=== PATIENT | female | born 1990 | race African-American/Black ===

== ENCOUNTER 2018-07-12 15:28 | Outpatient (CLI) | payer MEDICAID ==
[~2018-07-12] VITALS: Wt 86.8 kg
[2018-07-12 16:01] VITALS: BP 123/65; PULSE 102; TEMP 97.4
[2018-07-12] MEDS ORDERED: PRENATAL PO (16:21)
[2018-07-12] MEDS ORDERED: PROAIR HFA0.09 MG/AC IH (16:22)
[2018-07-12 17:05] VITALS: BP 109/56; PULSE 95
== END 2018-07-12 17:15 | disposition home or self-care (01) ==
LOC: LDRO 15:28 → LDR 15:35 → LDRO 17:15
DX: O47.02 False labor before 37 completed weeks of gestation, second trimester (principal); O26.893 Other specified pregnancy related conditions, third trimester; R11.2 Nausea with vomiting, unspecified; Z3A.27 27 weeks gestation of pregnancy
CPT/HCPCS: OP; J7120

== ENCOUNTER 2018-08-21 18:30 | Outpatient (CLI) | payer MEDICAID ==
[~2018-08-21] VITALS: Ht 167.6 cm; Wt 91.4 kg
[~2018-08-21 18:30] MED LIST: PRENATAL PO; PROAIR HFA0.09 MG/AC IH
--- NOTE | 2018-08-21 18:35 | NUR ---
at 33 weeks arrives to unit with complaint of contractions "every couple of minutes" pt hasn't been able to time them. Pt reports in the car on the way she had 3 contractions. Denies bleeding or LOF. Reports good FM. Pt oriented to room. EFM and toco explained and applied. Plan of care reviewed. supportive at bedside. Admission assessment started. Vital signs obtained. SVE - closed/thick/high
[2018-08-21 19:00] VITALS: BP 121/57; PULSE 115; TEMP 98.9
[2018-08-21 19:30] VITALS: BP 124/71; PULSE 103
--- NOTE | 2018-08-21 19:30 | NUR ---
1 contraction noted on toco. This RN in room from 1840 - 1910 and no contraction during that time.
[2018-08-21 19:45] VITALS: BP 116/58; PULSE 109
--- NOTE | 2018-08-21 20:00 | NUR ---
SVE unchanged over 1 hour. Pt discharged home at this time. Return precautions reviewed with patient. Discharge instructions reviewed, pt verbalized understanding of all. Pt seen ambulating off unit with spouse.
== END 2018-08-21 20:00 | disposition home or self-care (01) ==
LOC: LDRO 18:30
DX: O62.9 Abnormality of forces of labor, unspecified (principal); Z3A.33 33 weeks gestation of pregnancy

== ENCOUNTER 2018-09-20 18:01 | Outpatient (CLI) | payer MEDICAID ==
[~2018-09-20] VITALS: Ht 167.6 cm; Wt 93.2 kg
--- NOTE | 2018-09-20 18:00 | NUR ---
Pt arrived on unit ambulatory escorted by and with complaints of contractions "on and off all day", pt denies any leaking of fluid, vaginal bleeding at this time and reports normal movement. EFM and toco monitors placed. SVE by this RN /3. Vital signs WNL. Dr. Gutierrez on the unit. FHR tracing reviewed. Orders for labor assessment received.
[2018-09-20 19:30] VITALS: BP 109/64; PULSE 98; TEMP 98.3
--- NOTE | 2018-09-20 19:35 | NUR ---
SVE by this RN with no change . Spoke with Dr. Gutierrez for an update on pt's status. Orders for discharge home received. Information reviewed with pt and at the bedside.
== END 2018-09-20 19:50 | disposition home or self-care (01) ==
LOC: LDRO 18:01
DX: O62.9 Abnormality of forces of labor, unspecified (principal); Z3A.37 37 weeks gestation of pregnancy

== ENCOUNTER 2018-10-03 06:24 | Inpatient (IN) | payer MEDICAID ==
[~2018-10-03] VITALS: Ht 167.6 cm; Wt 93.2 kg
[2018-10-04] VITALS (40 sets, daily range): BP systolic 92–148; BP diastolic 45–90; PULSE 80–118; TEMP 98.1–98.9
--- NOTE | 2018-10-04 07:10 | NUR ---
Patient presents to floor for scheduled induction. Patient reports contractions, denies leaking of fluid or bleeding, patient orientated to room with spouse. Patient into bed, monitors in place, consents signed, IV started in left hand. Patient tolerated well. Labs obtained, fluid infusing. Discussed plan of care for the day and encouraged questions or concerns. Answered as appropriate. Spouse at bedside. FHR with intermittent tracing, nurse continues to adjust monitor as appropriate. 0820- at patient bedside, discuss plan of care with patient.
--- NOTE | 2018-10-04 08:30 | NUR ---
Dr. Gutierrez at patient beside, bedside ultrasound completed noted vertex. SVE completed noted 1/thick. Patient tolerated well.Dicuss plan for pitocin per Dr. Gutierrez increase pitocin to 40. Will not break water at this time, no epidural until progression of dilation. Patient states understanding of plan of care. Monitors adjusted for monitoring of FHT.
[2018-10-04 08:45] LABS: BASO % 0.1 % (0.0-2.0); EOS # 0.1 (0.0-0.7); EOS % 1.6 % (0-4.0); GRAN # 4.2 (1.4-6.5); GRAN % 62.1 % (42.2-75.2); LYMPH # 1.8 (1.2-3.4); LYMPH % 26.9 % (20.0-51.0); MEAN CELL VOLUME 78 fl (80.0-100.0); MEAN CORPUSCULAR HEMOGLOBIN 25 pg (27.0-31.0); MEAN CORPUSCULAR HGB CONC 31 g/dl (33.0-37.0); MEAN PLATELET VOLUME 9.3 fl (7.4-10.4); MONO # 0.6 (0.1-0.6); MONO % 8.7 % (1.7-9.3); PLATELET COUNT 244 K/mm3 (130-400); RED BLOOD COUNT 4.49 M/mm3 (4.10-5.30); REDCELL DISTRIBUTION WIDTH-CV 17.2 % (11.5-14.5)
[2018-10-04 08:49] LABS: HEMATOCRIT 35.1 % (37.0-47.0)
--- NOTE | 2018-10-04 09:00 | NUR ---
Patient up to birthing ball per request, monitors adjusted to monitor FHTs
--- NOTE | 2018-10-04 10:00 | NUR ---
Intermittent tracing of FHT's patient moved from birthing ball to bed, repostioned. Monitors adjusted for tracing, nurse at bedside.
--- NOTE | 2018-10-04 12:00 | NUR ---
1150- at patient bedside. Discuss plan of care. SVE completed, patient noted with change. AROM with clear fluids noted, patient tolerated well. Patient may have epidural when request. Will continue to monitor.
--- NOTE | 2018-10-04 13:00 | NUR ---
Patient requests epidural at this time, Nabil avina notified [employer] ASSEMBLER.
--- NOTE | 2018-10-04 13:30 | NUR ---
1330- FIELD MARKETING TEAM LEADER in patient room at bedside for start of epidural. Time out performed. Patient states understanding of procedure. Patient into place. 1352- Test dose given, patient tolerated ell. 1358- Patient laid down into wedge right. Will continue to monitor.
--- NOTE | 2018-10-04 13:50 | NUR ---
Dr. Gutierrez calls for update, informed patient recieving epidural, will notify when SVE completed for update.
--- NOTE | 2018-10-04 15:45 | NUR ---
SVE completed, patient tolerated well. Dr. Gutierrez called and notified of update on patient status, will continue to monitor.
--- NOTE | 2018-10-04 16:15 | NUR ---
Patient spouse to desk, states patient is feeling pressure, "like his head is right down there". Nurse into room. SVE completed, noted patient is complete. Dr. Gutierrez called and notified of patient status at 1617, Nursery RN informed of patient status, charge nurse informed, and mobile device developer informed. Begin prep for delivery. Room prepped.
--- NOTE | 2018-10-04 16:30 | NUR ---
1628- Dr. Gutierrez in patient room, du removed. Nursery RN to room for delivery. Bed broke down.
--- NOTE | 2018-10-04 16:45 | NUR ---
in patient room. Patient begins to push with contractions. Per , infant noted OP. Intermittent tracing of FHT's inbetween contractions. Nurse at bedside with patient. Monitoring with physician.
--- NOTE | 2018-10-04 17:35 | NUR ---
173- Delivery of viable male . suctioned infant mother, infant to mothers chest for drying and stimulation, to the care of nursery RN. cord remained intact until stop pulsating, Dr. Gutierrez clamps cord, father of baby cuts cord. 174- Delivery of placenta. Dr. Gutierrez notes bright bleeding, fundal massage performed by Dr. Gutierrez. Nurse provides support and comfort to patient. Pitocin started per protcol of 333ml/hr. Continue Fundal massage performed by Dr. Gutierrez. Request of suture for perineum repair for 2nd degree tear. Dr. Gutierrez continues to provide fundal massage. Instructed for 1 dose Im methergine given in right thigh at 1745. Continued fundal massage by physician and nurse. 2nd dose IM methergine orderd and administered 1752 left thigh. continue fundal massage perfomed, noted firm uterus, noted with bleeding. 800mcg of cytotec given rectally by at 1759. completes repair. Fundal massage peformed with scant bleeding, noted firm uterus. Will continue to monitor. Ice pack applied. Patient resting comfortably in bed.
[2018-10-05 02:16] VITALS: BP 116/60; PULSE 96; TEMP 98.5
[2018-10-05 07:30] VITALS: BP 118/65; PULSE 94; TEMP 98.1
[2018-10-05 07:39] LABS: HEMOGLOBIN 11.6 g/dl (12.5-16.0); MEAN CELL VOLUME 80 fl (80.0-100.0); MEAN CORPUSCULAR HEMOGLOBIN 24 pg (27.0-31.0); MEAN CORPUSCULAR HGB CONC 31 g/dl (33.0-37.0); PLATELET COUNT 242 K/mm3 (130-400); RED BLOOD COUNT 4.78 M/mm3 (4.10-5.30)
[2018-10-05 08:16] LABS: BAND 5 % (0-10); LYMPHOCYTE 25 % (20.0-51.0); METAMYELOCYTE 1 % (0-0); NEUTROPHILS 59 % (42.0-75.2); OVALOCYTES 1+; PLATELET ESTIMATE NORMAL (NORMAL); TARGET CELLS 1+
--- NOTE | 2018-10-05 09:04 | NUR ---
Initial visit; Parents thanked Analyst for offering congratulations and God's blessings for the of their son. Analyst thanked them for choosing [facility].
[2018-10-05] MEDS ORDERED: IBU600 MG PO (09:06)
[2018-10-05 12:40] VITALS: BP 113/63; PULSE 87; TEMP 97.6
[2018-10-05 16:07] VITALS: BP 123/61; PULSE 87; TEMP 98
--- NOTE | 2018-10-05 19:45 | NUR ---
Discharge instructions explained and questions answered. Patient ambulatory off unit with , , and camera repair technician at 1945.
== END 2018-10-05 19:45 | disposition home or self-care (01) | DRG 806 ==
LOC: LDR 06:24 → OB 10-04 07:07 → LDR 10-04 10:42 → OB 10-04 21:41
PROVIDERS: ADMIT Obstetrics & Gynecology
PROC: 10E0XZZ Delivery of Products of Conception, External Approach (ICD-10-PCS; principal; 2018-10-04)
PROC: 0KQM0ZZ Repair Perineum Muscle, Open Approach (ICD-10-PCS; 2018-10-04)
PROC: 3E033VJ Introduction of Other Hormone into Peripheral Vein, Percutaneous Approach (ICD-10-PCS; 2018-10-04)
PROC: 10907ZC Drainage of Amniotic Fluid, Therapeutic from Products of Conception, Via Natural or Artificial Opening (ICD-10-PCS; 2018-10-04)
DX: O70.1 Second degree perineal laceration during delivery (principal); O72.1 Other immediate postpartum hemorrhage; Z37.0 Single live birth; Z3A.39 39 weeks gestation of pregnancy; Z28.21 Immunization not carried out because of patient refusal; O75.89 Other specified complications of labor and delivery; J45.909 Unspecified asthma, uncomplicated; M54.42 Lumbago with sciatica, left side; M54.41 Lumbago with sciatica, right side
CPT/HCPCS: J2210; J2590; J7120